=== PATIENT | male | born 1980 | race Caucasian/White ===

== ENCOUNTER → 2019-04-28 | Day surgery (SDC) | payer OTHER ==
[~2019-04-28] MED LIST: KETAMINE HCL 500 MG/10 ML VIAL ONE; ONDANSETRON 4 MG/2 ML VIAL IVPUSH PRN; ONDANSETRON 4 MG/2 ML VIAL ONE; PROPOFOL 1,000,000 MCG/100 ML VIAL ONE
[2019-04-28 07:11] VITALS: BMI 40.7
[2019-04-28 07:43] LABS: BASO % 0.7 % (0-2.0); EOS % 3.9 % (0-4.5); HEMATOCRIT 49.9 % (35.4-49); HEMOGLOBIN 16.5 GM/dl (11.7-16.9); LYMPH % 30.6 % (8-40); MEAN PLT VOLUME 8.6 fl (7.5-11.1); MONO % 8.1 % (3.8-10.2); NEUT % 56.7 % (42.8-82.8); PLATELET COUNT 340 K/MM3 (134-434); RBC 5.67 M/mm3 (4.00-5.60); RDW 12.4 % (11.9-15.9)
[2019-04-28 08:07] LABS: ALBUMIN 4.9 g/dl (3.4-5.0); BILIRUBIN,TOTAL 1.2 mg/dl (0.2-1); CALCIUM 9.6 mg/dl (8.5-10); POTASSIUM 4.6 mmol/L (3.5-5.1)
--- NOTE | 2019-04-28 08:23 | HP ---
CHIEF COMPLAINT: Major Depression PCP: Dr. Chente Mccloud [place], [place]- [phone] Primary Psychiatrist: Dr. Garrido HISTORY OF PRESENT ILLNESS: 39 year-old male with a PMH significant for major depression, previously hospitalized at [facility] a few years ago where he first received ECT. Patient does not follow regularly with a psychiatrist. He is on no psychotropic medication. He states he treats his depression only with ECT. He presents today on the recommendation of Dr. Garrido for ECT therapy. Recent Events: * none reported PAST MEDICAL HISTORY: Major Depression PAST SURGICAL HISTORY: Appendix age 12 Lap band 2007 Gastric Sleeve 2014 Colorectal fistula/abscess 2017 ([facility]; Dr. Curry Social History: Smoking: current every day Alcohol: denies Drugs: denies Allergies Sulfa (Sulfonamide Antibiotics) Allergy (Intermediate, Verified 04/26/19 12:31) BLISTERS HOME MEDICATIONS: Home Medications Medication Instructions Recorded NK [No Known Home Medication] 04/26/19 REVIEW OF SYSTEMS CONSTITUTIONAL: Absent: fever, chills, diaphoresis, generalized weakness, malaise, loss of appetite, weight change HEENT: Absent: rhinorrhea, nasal congestion, throat pain, throat swelling, difficulty swallowing, mouth swelling, ear pain, eye pain, visual changes CARDIOVASCULAR: Absent: chest pain, syncope, palpitations, irregular heart rate, lightheadedness , peripheral edema RESPIRATORY: Absent: cough, shortness of breath, dyspnea with exertion, orthopnea, wheezing, stridor, hemoptysis GASTROINTESTINAL: Absent: abdominal pain, abdominal distension, nausea, vomiting, diarrhea, constipation, melena, hematochezia GENITOURINARY: Absent: dysuria, frequency, urgency, hesitancy, hematuria, flank pain, genital pain MUSCULOSKELETAL: Absent: myalgia, arthralgia, joint swelling, back pain, neck pain SKIN: Absent: rash, itching, pallor HEMATOLOGIC/IMMUNOLOGIC: Absent: easy bleeding, easy bruising, lymphadenopathy, frequent infections ENDOCRINE: Absent: unexplained weight gain, unexplained weight loss, heat intolerance, cold intolerance NEUROLOGIC: Absent: headache, focal weakness or paresthesias, dizziness, unsteady gait, seizure, mental status changes, bladder or bowel incontinence PHYSICAL EXAMINATION Vital Signs - 24 hr 04/28/19 06:59 Temperature 98.9 F Pulse Rate 70 Respiratory 18 Rate Blood Pressure 122/82 O2 Sat by Pulse 95 Oximetry (%) GENERAL: Awake, alert, and fully oriented, in no acute distress. HEAD: Normal with no signs of trauma. EYES: Pupils equal, round and reactive to light, sclera anicteric, conjunctiva clear. LUNGS: Breath sounds equal, clear to auscultation bilaterally. No wheezes, and no crackles. No accessory muscle use. HEART: Regular rate and rhythm, normal S1 and S2 ABDOMEN: Soft, nontender, not distended MUSCULOSKELETAL: Normal range of motion at all joints. No bony deformities or tenderness. No CVA tenderness. UPPER EXTREMITIES: 2+ pulses, warm, well-perfused. No cyanosis. No clubbing. No peripheral edema. LOWER EXTREMITIES: 2+ pulses, warm, well-perfused. No calf tenderness. No peripheral edema. NEUROLOGICAL: Cranial nerves II-XII intact. Normal speech. Laboratory Results - last 24 hr 04/28/19 04/28/19 06:29 06:30 WBC 9.0 RBC 5.67 H Hgb 16.5 Hct 49.9 H MCV 88.0 MCH 29.0 MCHC 33.0 RDW 12.4 Plt Count 340 MPV 8.6 Absolute Neuts (auto) 5.0 Neutrophils % 56.7 Lymphocytes % 30.6 Monocytes % 8.1 Eosinophils % 3.9 Basophils % 0.7 Sodium 138 Potassium 4.6 Chloride 100 Carbon Dioxide 30 Anion Gap 8 BUN 15.0 Creatinine 1.0 Est GFR (CKD-EPI)AfAm 109.40 Est GFR (CKD-EPI)NonAf 94.39 Random Glucose 88 Calcium 9.6 Total Bilirubin 1.2 H AST 37 ALT 50 Alkaline Phosphatase 62 Total Protein 8.0 Albumin 4.9 ASSESSMENT/PLAN: 39 year-old male with a PMH significant for major depression, previously hospitalized at [facility] a few years ago where he first received ECT. Patient does not follow regularly with a psychiatrist. He is on no psychotropic medication. He states he treats his depression only with ECT. He presents today on the recommendation of Dr. Garrido for ECT therapy. Cardiac --no cardiac history --Revised Cardiac Risk Index for Pre-Operative Risk: 0 points, 0.4% risk of major cardiac event Pulmonary --no pulmonary history Neurological --no neurological or neurosurgical history; no history of trauma Anesthesia --no reported problems with anesthesia ECT is a low risk procedure. The relative benefits of the planned procedure outweigh the relative risks for this patient at this time. Visit type - Emergency Visit Emergency Visit: No - New Patient This patient is new to me today: Yes Date on this admission: 04/28/19 - Critical Care Critical Care patient: No
[2019-04-28 10:34] VITALS: TEMP 98.1
[2019-04-28 10:59] VITALS: BP 140/88; PULSE 74
--- NOTE | 2019-04-28 15:22 | EKG ---
Test Reason : Blood Pressure : / mmHG Vent. Rate : 074 BPM Atrial Rate : 074 BPM P-R Int : 168 ms QRS Dur : 088 ms QT Int : 386 ms P-R-T Axes : 025 006 015 degrees QTc Int : 428 ms NORMAL SINUS RHYTHM POSSIBLE LEFT ATRIAL ENLARGEMENT CANNOT RULE OUT ANTERIOR INFARCT , AGE UNDETERMINED ABNORMAL ECG NO PREVIOUS ECGS AVAILABLE Confirmed by NORA TRINIDAD MD ([id number]) on 04/28/2019 3:22:35 PM Referred By: Azael Rodriguez Confirmed By:NORA TRINIDAD MD
== END | disposition home or self-care (01) ==
LOC: FECT 06:01
PROVIDERS: ATTEND Psychiatry & Neurology Psychiatry
PROC: GZB4ZZZ Other Electroconvulsive Therapy (ICD-10-PCS; principal; 2019-04-28 07:15)
DX: F31.9 Bipolar disorder, unspecified (principal)
CPT/HCPCS: 36415; 80053; 85025; 90870; 93005; 94760

== ENCOUNTER 2019-05-02 05:47 | Day surgery (SDC) | payer OTHER ==
[2019-04-29 12:42] VITALS: BMI 41.6
[2019-05-02] MEDS ORDERED: LACTATED RINGERS SOLUTION 1,000 ML IV SCH (07:00)
[2019-05-02] MEDS ORDERED: KETAMINE HCL 500 MG/10 ML VIAL ONE (07:17)
[2019-05-02 08:14] VITALS: TEMP 98.4
[2019-05-02 08:30] VITALS: BP 133/79; PULSE 71
== END 2019-05-02 08:35 | disposition home or self-care (01) ==
LOC: FECT 05:47
PROVIDERS: ATTEND Psychiatry & Neurology Psychiatry
PROC: GZB4ZZZ Other Electroconvulsive Therapy (ICD-10-PCS; principal; 2019-05-02 07:45)
DX: F31.62 Bipolar disorder, current episode mixed, moderate (principal)
CPT/HCPCS: 90870; 94760

== ENCOUNTER 2019-05-04 05:38 | Day surgery (SDC) | payer OTHER ==
[2019-04-29 12:44] VITALS: BMI 41.6
[2019-05-04 06:51] VITALS: TEMP 98.4
[2019-05-04] MEDS ORDERED: KETAMINE HCL 500 MG/10 ML VIAL ONE (07:14)
[2019-05-04 08:59] VITALS: BP 129/74; PULSE 68
== END 2019-05-04 08:45 | disposition home or self-care (01) ==
LOC: FECT 05:38
PROVIDERS: ATTEND Psychiatry & Neurology Psychiatry
PROC: GZB4ZZZ Other Electroconvulsive Therapy (ICD-10-PCS; principal; 2019-05-04 07:15)
DX: F31.89 Other bipolar disorder (principal)
CPT/HCPCS: 90870; 94760

== ENCOUNTER 2019-05-06 05:44 | Day surgery (SDC) | payer OTHER | END 2019-05-06 08:25 | disposition home or self-care (01) | LOC: FECT 05:44 ==